=== PATIENT | male | born 1990 | race Hispanic/Latino ===

== ENCOUNTER 2020-01-01 16:57 | Emergency (ER) | payer OTHER ==
[~2020-01-01] VITALS: Ht 198.1 cm; Wt 145.5 kg
--- NOTE | 2020-01-01 17:57 | REPVR ---
PROCEDURE INFORMATION: Exam: CT Head Without Contrast Exam date and time: 01/01/2020 5:50 PM Age: 29 years old Clinical indication: Weakness, facial; Additional info: CVA - nursing interventions must not delay CT TECHNIQUE: Imaging protocol: Computed tomography of the head without contrast. Radiation optimization: All CT scans at this facility use at least one of these dose optimization techniques: automated exposure control; mA and/or kV adjustment per patient size (includes targeted exams where dose is matched to clinical indication); or iterative reconstruction. Other technique: STROKE PROTOCOL was implemented. COMPARISON: No relevant prior studies available. FINDINGS: Brain: Normal. No hemorrhage. Unremarkable white matter. No mass effect. Cerebral ventricles: No ventriculomegaly. Bones/joints: Unremarkable. No acute fracture. Paranasal sinuses: A cyst/polyp is present in the medial left maxillary sinus. Mastoid air cells: Visualized mastoid air cells are well aerated. Soft tissues: Unremarkable. IMPRESSION: No acute intracranial abnormality identified. ASSESSMENT: ASPECTS ([place] Stroke Program Early CT Score) is 10. Electronically signed by: Jose R Cuevas On 01/01/2020 17:57:57 PM
--- NOTE | 2020-01-01 17:58 | REPVR ---
PROCEDURE INFORMATION: Exam: XR Chest, 1 View Exam date and time: 01/01/2020 5:55 PM Age: 29 years old Clinical indication: Other: Facial numbness; Additional info: CVA TECHNIQUE: Imaging protocol: XR of the chest Views: 1 view. COMPARISON: No relevant prior studies available. FINDINGS: Lungs: The lungs are clear bilaterally. The pulmonary vasculature is normal. Pleural space: No pleural effusion. No pneumothorax. Heart/Mediastinum: The heart is normal in size and contour. Bones/joints: No acute chest wall abnormality identified. IMPRESSION: No acute cardiopulmonary abnormality identified. Electronically signed by: Jose R Cuevas On 01/01/2020 17:58:21 PM
[2020-01-01 18:32] LABS: HEMATOCRIT 42.1 % (42.0-52.0); HEMOGLOBIN 13.5 g/dl (13.5-17.5); MEAN CORPUSCULAR HEMOGLOBIN 26.1 pg (27.0-33.0); MEAN CORPUSCULAR HGB CONC 32.1 g/dl (32.0-36.5); MEAN CORPUSCULAR VOLUME 81.4 fl (80.0-96.0); PLATELET COUNT, AUTOMATED 374 10^3/uL (150-450); RED BLOOD COUNT 5.17 10^6/uL (4.30-6.10); WHITE BLOOD COUNT 6.1 10^3/uL (4.0-10.0)
[2020-01-01 18:43] LABS: INR 0.91; PARTIAL THROMBOPLASTIN TIME 27.9 SECONDS (24.2-38.5); PROTHROMBIN TIME 12.4 SECONDS (12.5-14.3)
[2020-01-01 19:05] LABS: ATYPICAL LYMPH 5 % (0-5); BASOPHILS 1 % (0-1); EOSINOPHILS 2 % (0-3); LYMPHOCYTES 47 % (16-44); MONOCYTES 3 % (0-5); NEUTROPHILS 42 % (28-66)
[2020-01-01 19:06] LABS: PLATELET ESTIMATE NORMAL (NORMAL)
--- NOTE | 2020-01-01 20:13 | REPVR ---
PROCEDURE INFORMATION: Exam: MR Head Without Contrast Exam date and time: 01/01/2020 6:20 PM Age: 29 years old Clinical indication: Numbness / parasthesia; Right; Additional info: Right face droop w central features TECHNIQUE: Imaging protocol: MR of the head without contrast. COMPARISON: CT Head without contrast 01/01/2020 5:45 PM FINDINGS: Brain: No restricted diffusion to suggest acute infarction. There is no acute intracranial hemorrhage. There are no prior microhemorrhages. There are no white matter lesions. Cerebral ventricles: Normal. No ventriculomegaly. Bones/joints: Unremarkable. Paranasal sinuses: Normal as visualized. No acute sinusitis. Mastoid air cells: Normal as visualized. No mastoid effusion. Orbits: Unremarkable. Soft tissues: Unremarkable. Other vasculature: The major intracerebral arteries appear patent on the T2 weighted sequence. IMPRESSION: No acute intracranial findings. Electronically signed by: Cristina Hooper On 01/01/2020 20:13:22 PM
[2020-01-01] MEDS ORDERED: VALA1TAB5 PO (21:14)
[2020-01-01] MEDS ORDERED: PRED20TA PO (21:14)
[2020-01-01] MEDS ORDERED: predniSONE 20 MG TAB PO ONE (21:15)
[2020-01-01] MEDS ORDERED: valACYclovir HCL 500 MG TAB PO ONE (21:15)
[2020-01-01 21:34] VITALS: BP 141/70
--- NOTE | 2020-01-02 05:55 | ECGEPIP ---
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
[2020-01-03 14:12] LABS: Lyme Disease IgG/IgM Antibodie <0.91 ISR (0.00-0.90); Lyme Disease IgM Ab Quantitati <0.80 index (0.00-0.79)
== END 2020-01-01 21:45 | disposition home or self-care (01) ==
LOC: M ED 16:57
DX: G51.0 Bell's palsy (principal); R00.1 Bradycardia, unspecified